=== PATIENT | male | born 1970 | race Caucasian/White ===

== ENCOUNTER 2019-06-15 17:04 | Emergency (ER) | payer OTHER, SELFPAY ==
[2019-06-15 17:04] VITALS: BP 140/82; PULSE 94; RESP 16; TEMP 36.4; O2SAT 97; BMI 32.5
--- NOTE | 2019-06-15 17:21 | RAD_ITS ---
STUDY: X-RAY - RIGHT FOOT CLINICAL: Male, 48 years old. [place] foot pop at work today when walking. Pain. TECHNIQUE: 3 view(s) of the foot. COMPARISON: Right ankle, June 15, 2019. FINDINGS: There is an enthesophyte involving the posterior superior calcaneus at the site of insertion of the Achilles tendon. Normal talus and tarsal bones. Normal visualized subtalar, talonavicular, calcaneocuboid, tarsal and tarsometatarsal articulations. Normal metatarsi. Normal metatarsophalangeal joint of the great toe. Normal tibial and fibular sesamoid bones. Normal interphalangeal joint of the great toe. Normal phalanges of the great toe. Normal second through fifth metatarsophalangeal joints. Normal interphalangeal joints and phalanges of the lesser toes. The soft tissue structures are unremarkable. RAD/Foot min 3 Views IMPRESSION: Normal x-ray examination of the foot. Electronically Signed: Peña Del Toro DO at 17:46 EDT Tel [phone], Service support ,
--- NOTE | 2019-06-15 17:26 | US_ITS ---
STUDY: VENOUS DOPPLER ULTRASOUND - RIGHT LOWER EXTREMITY REASON FOR EXAM: Male, 48 years old. Right ankle pain today. Patient heard a pop. TECHNIQUE: Ultrasound evaluation of the deep vein system to include alexandra-scale imaging and compression was performed. Alexandra-scale imaging and Doppler sonographic evaluation, including duplex spectral analysis and qualitative color flow sonography, was performed. COMPARISON: None. FINDINGS: Common Femoral Vein: Normal compression, spontaneity and augmentation. Normal color Doppler. Greater Saphenous Vein: Normal compression. Deep Femoral Vein: Normal compression. Femoral Proximal: Normal compression. Femoral Middle: Normal compression, spontaneity and augmentation. Normal color Doppler. Femoral Distal: Normal compression. Popliteal Vein: Normal compression, spontaneity and augmentation. Normal color Doppler. Posterior Tibial Vein: Normal compression. Peroneal Vein: Normal compression. There is no demonstrated deep venous thrombosis. US/Venous Duplex Imag/Limited/Uni IMPRESSION: No demonstrated DVT of the right lower extremity. Electronically Signed: Sean Regalado MD at 18:10 EDT , Service support ,
--- NOTE | 2019-06-15 17:28 | RAD_ITS ---
STUDY: X-RAY - RIGHT ANKLE REASON FOR EXAM: Male, 48 years old. [place] foot popped today at work while walking. Pain. TECHNIQUE: view(s) of the ankle. COMPARISON: None. FINDINGS: Normal visualized distal tibia and fibula. Normal medial and lateral malleoli. Normal tibiotalar articulation and ankle mortise. Normal visualized talus. There is a small enthesophyte at the insertion of the Achilles tendon on otherwise normal calcaneus. The visualized subtalar, talonavicular, calcaneocuboid and tarsal articulations are normal. Question minimal lateral soft tissue swelling. RAD/Ankle min 3 Views IMPRESSION: Impression minimal lateral soft tissue swelling. There is no visualized fracture or dislocation. Electronically Signed: Peña Del Toro DO at 17:46 EDT Tel [phone], Service support ,
--- NOTE | 2019-06-15 18:16 | ED.VISSUMM ---
- ER Visit Summary Date of Service: 06/15/19 Chief Complaint: Right foot and ankle pain History of Present Illness: The patient is a 48 M presenting with right foot and ankle pain. Patient states he was at work. He states he wears steel toed boots. He states he stepped down like he normally does and felt a pop in his right foot and ankle. He has had painful ambulation since. He denies other complaints. He declines to file Worker's Compensation paperwork. Physical Examination: Vitals are stable. Patient is afebrile. Alert no acute distress. HEENT exam is unremarkable. Neck is supple. Lungs are clear and equal bilaterally. Heart is regular rate and rhythm. Extremities right ankle medial and lateral tenderness. No Achilles tendon tenderness. Mercado test negative. Mild right midfoot tenderness. Normal pulses. Skin is warm and dry. No focal neurologic deficit. Remainder of exam is unremarkable. Emergency Department Course and Treatment: X-ray right foot and ankle show soft tissue swelling with no fracture. Right lower extremity venous Doppler shows no evidence of DVT. Patient is given an Aircast. He states he has crutches. Advised to use NSAIDs for pain. Advised to follow-up with his primary care physician. Advised return to ED for worsening complaints. Disposition: Discharge home Impression: Right ankle sprain This note was generated with [employer] dictation software. It may contain incorrect words, spelling, and punctuation that were not noted in review of the chart prior to signing ED Disposition - Plan for ED Patient: Referrals: NOT,DEFINED [NON-STAFF] -
--- NOTE | 2019-06-15 18:50 | ED.DEP ---
ED Disposition - Plan for ED Patient: Instructions: Sprain, Ankle, with X-Ray Referrals: NOT,DEFINED [NON-STAFF] -
== END 2019-06-15 19:04 | disposition home or self-care (01) ==
LOC: ED 18:19
PROVIDERS: Emergency Provider Emergency Medicine
DX: S93.401A Sprain of unspecified ligament of right ankle, initial encounter (principal); W22.8XXA Striking against or struck by other objects, initial encounter; Y93.89 Activity, other specified; Y92.89 Other specified places as the place of occurrence of the external cause; Y99.0 Civilian activity done for income or pay; E11.9 Type 2 diabetes mellitus without complications
CPT/HCPCS: 73610; 73630; 93971; 99283